=== PATIENT | female | born 1980 | race Caucasian/White ===

== ENCOUNTER 2018-07-14 12:01 | Emergency (ER) | payer BC ==
--- NOTE | 2018-07-14 13:09 | ER ---
Nurse's Notes [facility] Name: Helen Mccullough Age: 37 yrs Sex: Female : 1980 Arrival Date: 07/14/2018 Time: 12:05 Bed 28 Private MD: Clay Canales V Diagnosis: Pain in left leg Presentation: 07/14 12:07 Presenting complaint: Patient states: L leg pain x 2 days. Denies injury. No redness or ss swelling observed to affected extremity. Pt states that pain starts in L groin area and radiates down to L foot. Transition of care: patient was not received from another setting of care. Onset of symptoms was July 12, 2018. Risk Assessment: Do you want to hurt yourself or someone else? Patient reports no desire to harm self or others. Initial Sepsis Screen: Does the patient have a suspected source of infection? No. Patient's initial sepsis screen is negative. Care prior to arrival: None. 12:07 Method Of Arrival: Ambulatory ss 12:07 Acuity: AGUSTIN 3 ss 13:11 Initial Sepsis Screen: Does the patient meet any 2 criteria? No. Patient's initial kr2 sepsis screen is negative. 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 - Social history:: Smoking status: Patient/guardian denies using tobacco. - Ebola Screening: : Patient denies exposure to infectious person Patient denies travel to an Ebola-affected area in the 21 days before illness onset. Screenin:11 Abuse screen: Denies threats or abuse. Denies injuries from another. Nutritional kr2 screening: No deficits noted. Tuberculosis screening: No symptoms or risk factors identified. Fall Risk None identified. Assessment: 13:08 General: Appears in no apparent distress. comfortable, well groomed, well developed, kr2 well nourished, Behavior is calm, cooperative, appropriate for age. Pain: Complains of pain in left leg Pain currently is 7 out of 10 on a pain scale. Quality of pain is described as aching, dull, Is continuous, Alleviated by rest, Aggravated by increased activity. Neuro: Level of Consciousness is awake, alert, obeys commands, Oriented to person, place, time, situation, Appropriate for age. Cardiovascular: Capillary refill < 3 seconds in bilateral fingers Patient's skin is warm and dry. Respiratory: Airway is patent Respiratory effort is even, unlabored, Respiratory pattern is regular, symmetrical. GI: Abdomen is flat, non-distended. : Denies inability to void, incontinence. Derm: Skin is intact, is healthy with good turgor, Skin is pink, warm \T\ dry. Musculoskeletal: Circulation, motion, and sensation intact. Reports pain in left leg since Friday, denies injury or changes in routine. States she does a lot of sweeping and mopping and walks for exercise. Vital Signs: 12:09 BP 119 / 78; Pulse 111; Resp 16; Temp 98.6(TE); Pulse Ox 98% on R/A; Weight 71.67 kg; ss Height 5 ft. 4 in. (162.56 cm); Pain 7/10; 13:08 Pulse 95; Resp 16; Pulse Ox 99% on R/A; kr2 12:09 Body Mass Index 27.12 (71.67 kg, 162.56 cm) ED Course: 12:05 Patient arrived in ED. sb2 12:05 Clay Canales MD is Private Physician. sb2 12:09 Triage completed. ss 12:09 Arm band placed on left wrist. ss 12:53 [facility]. jr8 12:53 Grady Frnaco MD is Attending Physician. jr8 13:07 Ely Hardy, BURKE is Primary Nurse. kr2 13:09 Clay Canales MD is Referral Physician. jr8 13:11 Patient has correct armband on for positive identification. Bed in low position. Call kr2 light in reach. Side rails up X 1. Pulse ox on. NIBP on. Door closed. Head of bed elevated. 13:17 No provider procedures requiring assistance completed. Patient did not have IV access kr2 during this emergency room visit. Administered Medications: No medications were administered Outcome: 13:09 Discharge ordered by . jr8 13:17 Discharged to home ambulatory. kr2 13:17 Condition: good 13:17 Discharge instructions given to patient, Instructed on discharge instructions, follow up and referral plans. medication usage, Demonstrated understanding of instructions, follow-up care, medications, Prescriptions given X 2. 13:17 Patient left the ED. kr2 Signatures: Allison Becerra RN RN Joshua Jordan PA PA jr8 Ely Hardy RN RN kr2 Edna Allen sb2 Corrections: (The following items were deleted from the chart) 12:14 12:07 Acuity: AGUSTIN 4 [facility]
--- NOTE | 2018-07-14 13:09 | EDPHYS ---
Physician Documentation [facility] Name: Helen Mccullough Age: 37 yrs Sex: Female : 1980 Arrival Date: 07/14/2018 Time: 12:05 Bed 28 Private MD: Clay Canales V ED Physician Grady Franco HPI: 07/14 13:04 This 37 yrs old Female presents to ER via Ambulatory with complaints of Leg jr8 Pain. 13:04 The patient presents with pain. The complaints affect the left thigh. Onset: The jr8 symptoms/episode began/occurred acutely, 2 day(s) ago. Modifying factors: The symptoms are alleviated by nothing. the symptoms are aggravated by movement, bending knee. Associated signs and symptoms: The patient has no apparent associated signs or symptoms. Severity of symptoms: At their worst the symptoms were mild, in the emergency department the symptoms are unchanged. The patient has not experienced similar symptoms in the past. The patient has not recently seen a physician. Denies trauma. Stated that she mopped the other day. Since then has had pain to left thigh region. 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 - Social history:: Smoking status: Patient/guardian denies using tobacco. - Ebola Screening: : Patient denies exposure to infectious person Patient denies travel to an Ebola-affected area in the 21 days before illness onset. ROS: 13:04 Eyes: Negative for injury, pain, redness, and discharge, ENT: Negative for injury, jr8 pain, and discharge, Neck: Negative for injury, pain, and swelling, Cardiovascular: Negative for chest pain, palpitations, and edema, Respiratory: Negative for shortness of breath, cough, wheezing, and pleuritic chest pain, Abdomen/GI: Negative for abdominal pain, nausea, vomiting, diarrhea, and constipation, Back: Negative for injury and pain, Skin: Negative for injury, rash, and discoloration, Neuro: Negative for headache, weakness, numbness, tingling, and seizure. 13:04 MS/extremity: Positive for pain, of the left leg. Exam: 13:04 Eyes: Pupils equal round and reactive to light, extra-ocular motions intact. Lids and jr8 lashes normal. Conjunctiva and sclera are non-icteric and not injected. Cornea within normal limits. Periorbital areas with no swelling, redness, or edema. ENT: Nares patent. No nasal discharge, no septal abnormalities noted. Tympanic membranes are normal and external auditory canals are clear. Oropharynx with no redness, swelling, or masses, exudates, or evidence of obstruction, uvula midline. Mucous membranes moist. Neck: Trachea midline, no thyromegaly or masses palpated, and no cervical lymphadenopathy. Supple, full range of motion without nuchal rigidity, or vertebral point tenderness. No Meningismus. Cardiovascular: Regular rate and rhythm with a normal S1 and S2. No gallops, murmurs, or rubs. Normal PMI, no JVD. No pulse deficits. Respiratory: Lungs have equal breath sounds bilaterally, clear to auscultation and percussion. No rales, rhonchi or wheezes noted. No increased work of breathing, no retractions or nasal flaring. Abdomen/GI: Soft, non-tender, with normal bowel sounds. No distension or tympany. No guarding or rebound. No evidence of tenderness throughout. Back: No spinal tenderness. No costovertebral tenderness. Full range of motion. Skin: Warm, dry with normal turgor. Normal color with no rashes, no lesions, and no evidence of cellulitis. Neuro: Awake and alert, GCS 15, oriented to person, place, time, and situation. Cranial nerves II-XII grossly intact. Motor strength 5/5 in all extremities. Sensory grossly intact. Cerebellar exam normal. Normal gait. 13:04 Musculoskeletal/extremity: Extremities: grossly normal except: noted in the left thigh: ROM: intact in all extremities, full active range of motion, full passive range of motion, limited active range of motion due to pain, limited passive range of motion due to pain, Circulation is intact in all extremities. Sensation intact. Weight bearing: able to fully bear weight, DVT Exam: no pain, no swelling, no tenderness, negative Homans' sign noted on exam, no appreciated bluish discoloration, no erythema, no increased warmth, Calves: have equal circumference. Vital Signs: 12:09 BP 119 / 78; Pulse 111; Resp 16; Temp 98.6(TE); Pulse Ox 98% on R/A; Weight 71.67 kg; ss Height 5 ft. 4 in. (162.56 cm); Pain 7/10; 13:08 Pulse 95; Resp 16; Pulse Ox 99% on R/A; kr2 12:09 Body Mass Index 27.12 (71.67 kg, 162.56 cm) ss MDM: 12:53 Patient medically screened. jr8 13:04 Differential diagnosis: Lumbar radiculopathy, DVT, Myositis, Rhabdomyolysis, contusion, jr8 strain, cellulitis, lymphadenitis. Data reviewed: vital signs, nurses notes, and as a result, I will discharge patient. Data interpreted: Pulse oximetry: on room air is 98 %. Interpretation: normal. Counseling: I had a detailed discussion with the patient and/or guardian regarding: the historical points, exam findings, and any diagnostic results supporting the discharge/admit diagnosis, the need for outpatient follow up, a family practitioner, to return to the emergency department if symptoms worsen or persist or if there are any questions or concerns that arise at home. ED course: Patient with no DVT risk factors. No pain with palpation to any part of the leg. No inguinal reactive lymphadenopathy. No signs of infection. Only mild pain with ROM. More then likely strain. Will put on medication to help relieve the pain. Told to come back for further evaluation if worse or does not go away. Patient good with plan . Administered Medications: No medications were administered Disposition: 14:19 Co-signature as Attending Physician, Grady Franco MD I agree with the assessment and kdr plan of care. Disposition: 07/14/18 13:09 Discharged to Home. Impression: Pain in left leg. - Condition is Stable. - Discharge Instructions: Musculoskeletal Pain, Pain Without a Known Cause. - Prescriptions for Ibuprofen 800 mg Oral Tablet - take 1 tablet by ORAL route every 12 hours As needed take with food; 20 tablet. Cyclobenzaprine 10 mg Oral Tablet - take 1 tablet by ORAL route every 8 hours As needed; 30 tablet. - Medication Reconciliation Form, Thank You Letter, Antibiotic Education, Prescription Opioid Use form. - Follow up: Clay Canales MD; When: 5 - 6 days; Reason: Recheck today's complaints, Continuance of care, Re-evaluation by your physician. - Problem is new. - Symptoms have improved. Signatures: Grady Franco MD MD [facility] Allison Becerra RN RN Joshua Gale PA PA jr8 Ely Hardy, BURKE RN kr2 Corrections: (The following items were deleted from the chart) 13:17 13:09 07/14/2018 13:09 Discharged to Home. Impression: Pain in left leg. Condition is kr2 Stable. Forms are Medication Reconciliation Form, Thank You Letter, Antibiotic Education, Prescription Opioid Use. Follow up: Clay Canales; When: 5 - 6 days; Reason: Recheck today's complaints, Continuance of care, Re-evaluation by your physician. Problem is new. Symptoms have improved. jr8
== END 2018-07-14 13:17 | disposition home or self-care (01) ==
LOC: ER 12:01
DX: M79.605 Pain in left leg (principal)
CPT/HCPCS: 99283

== ENCOUNTER 2021-03-30 10:49 | Emergency (ER) | payer BC ==
--- OUTSIDE RECORDS SUMMARY | 2021-03-30 10:53 | XMS REPORT | Continuity of Care Document ---
:1980 Author Organization [facility] t Address [address] [place] [place] [address] Care Team Providers Name Role Phone Parker SILVA, Clay Primary Care Physician Yohannes PATRICIO, Brody Alexander Attending Clinician [phone] Raleigh Lee MD Attending Clinician Asked, Pcp Attending Clinician Unavailable Francois Arizmendi MD Attending Clinician Edy TURK Attending Clinician Unavailable Dayanara SILVA Attending Clinician Laura PATRICIO Attending Clinician NATHAN Admitting Clinician Unavailable BERT Admitting Clinician Unavailable Payers Payer Name Policy Type Policy Effective Date Expiration Date Sour ce Number BCBSANTHEM ALEX [id number] [id number] Method[facility] t 2020-Presen tPPO Problems This patient has no known problems. Allergies, Adverse Reactions, Alerts This patient has no known allergies or adverse reactions. Family History Family Member Diagnosis Comments Start Date Stop Date Source Natural father Heart disease Min Ramirez Natural father Hypertension Min Ramirez Social History Social Habit Start Date Stop Date Quantity Comments Source Exposure to Not sure [place] [facility] SARS-CoV-2 (event) Alcohol intake 2021-03-07 2021-03-07 Ex-drinker Min Vences thodist 00:00:00 00:00:00 (finding) Sex Ass[birth year] At [birth year] F Min Hatch ethodist 00:00:00 00:00:00 Smoking Status Start Date Stop Date Source Never smoker [facility] t Medications Ordered Filled Start Stop Current Ordering Indication Dosage Frequency Signature Comments Components Source Medication Medication Date Date Medication? Clinician (SIG) Name Name metoclopram 2020- No 10mg Q.5D Take 10 mg [place] royce 5-25 05-25 by mouth 2 [facility] (REGLAN) 10 12:35: 00:00 (two) st MG tablet 41 :00 times a day. promethazin Yes 12.5mg Q6H Take 1 [place] 5-25 tablet [facility] (PHENERGAN) 00:00: (12.[address] 12.5 MG 00 total) by tablet mouth every 6 (six) hours as needed for nausea or vomiting. pyridostigm Yes 60mg QD Take 1 [place] 5-17 tablet (60 [facility] (MESTINON) 00:00: mg total) st 60 mg 00 by mouth tablet daily. multivitami Yes 1{tbl} QD Take 1 [place] with 5-11 tablet by [facility] minerals 08:53: mouth st tablet 53 daily. ascorbic Yes 500mg QD Take 500 [place] acid, 5-11 mg by [facility] vitamin C, 08:53: mouth st (VITAMIN C) 53 daily. 500 MG tablet Ca comb Yes Take by [place] no.1/vit 5-11 mouth. [facility] D3/B6/FA/B1 08:53: st 2 (VITAMIN 53 D3, CALCIUM CIT-PHOS, ORAL) omeprazole Yes 40mg Q.5D Take 1 [place] (PriLOSEC) 4-23 capsule Method i 40 MG 00:00: ([address] capsule 00 total) by mouth 2 (two) times a day. ondansetron 2020- No Nausea 4mg Q8H Take 1 [place] ODT (Zofran 3-26 04-25 tablet (4 Me thodi ODT) 4 MG 00:00: 23:59 mg total) st disintegrat 00 :00 by mouth ing tablet every 8 (eight) hours as needed for nausea or vomiting for up to 30 days. pantoprazol 2020- No Gastroesoph 40mg QD Take 1 [place] e 3-26 04-23 ageal tablet (40 [facility] (PROTONIX) 00:00: 00:00 reflux mg total) st 40 MG EC 00 :00 disease by mouth tablet without daily. esophagitis Vital Signs Vital Name Observation Time Observation Value Comments Source Systolic blood 2021-03-06 08:43:00 108 mm[Hg] Derikto n [facility] pressure Diastolic blood 2021-03-06 08:43:00 70 mm[Hg] Katherine on [facility] pressure Heart rate 2021-03-06 08:43:00 101 /min Min Ramirez Body temperature 2021-03-06 08:43:00 36.33 [place] [facility] Respiratory rate 2021-03-06 08:43:00 16 /min [place] [facility] Oxygen saturation in 2021-03-06 08:43:00 98 /min Min Ramirez Arterial blood by Pulse oximetry Body height 2021-02-16 09:43:00 162.6 cm Min Ramirez Body weight 2021-02-16 09:43:00 69.4 kg Min Ramirez BMI 2021-02-16 09:43:00 26.26 kg/m2 Min Ramirez Procedures Procedure Date / Time Performing Source Performed Clinician ESOPHAGEAL MANOMETRY WITH MARSHALL 2021-03-06 Jameson Lee 06:56:00 NM GASTRIC EMPTYING 2021-02-23 Brody Sheffield odshiv 13:58:02 Letrice SURGICAL PATHOLOGY REQUEST 2021-02-07 Mg Arizmendi 15:12:00 ESOPHAGOGASTRODUODENOSCOPY (EGD) 2021-02-07 Mg Arizmendi 13:06:00 Plan of Care Planned Activity Planned Date Details Comments Source Future Scheduled 2021-05-27 INFLUENZA VACCINE Blayne samaniego [facility] Test 00:00:00 [code = INFLUENZA VACCINE] Future Scheduled 1999 Screening for Min Me [facility]ist Test 00:00:00 malignant neoplasm of cervix (procedure) [code = 830437805] Future Scheduled 1996 Hepatitis C Min Wyman hodist Test 00:00:00 screening (procedure) [code = 092327229] Future Scheduled 1990 COVID-19 VACCINE (1) Umesh llanos [facility] Test 00:00:00 [code = COVID-19 VACCINE (1)] Encounters Start End Encounter Admission Attending Care Care Encounter Source Date/Time Date/Time Type Type Clinicians Facility Department ID 2021-03-06 2021-03-06 Outpatient NATHAN, [facility] [id number] [place] 00:00:00 00:00:00 [place] [address] 2021-02-23 2021-02-23 Outpatient BERT [facility] [id number] [place] 00:00:00 00:00:00 MG [address] 2021-02-16 2021-02-16 Outpatient [facility] [id number] [place] 00:00:00 00:00:[address] 2021-02-07 2021-02-07 Outpatient BERT, [facility] [id number] [place] 00:00:00 00:00:00 MG [address] 2021-01-18 2021-01-18 Outpatient BERT [facility] [id number] [place] 00:00:00 00:00:00 MG [address] Results Test Description Test Time Test Comments Results Result [facility] e Comments NM Gastric 2021-01-27 [facility] Emptying [address] 14:25:40 02/23/2021 2:28 PM CDT PROCEDURE: NM GASTRIC EMPTYINGINDICATION: Nausea. Gastroesophageal reflux disease. TECHNIQUE: 0.5 mCi of Tc-99m sulfur colloid was mixed with an egg and cooked. The egg was fed to the patient and dynamic planar images of the abdomen were acquired for 90 minutes. Delayed images were obtained at 4 hours. FINDINGS: The initial gastric emptying rate is delayed. The half-time of emptying is 351 minutes. Normal range is between 45 and 100 minutes. 4 hour residual is 15%. IMPRESSION: 1. Delayed gastric emptying rate. [facility]-[id number] Surgical pathology request 2021-02-09 17:30:58 Test Item Value Reference Range Interpretation Comme nts Case number (test code = [id number]) [id number] Surgical pathology report (test code = See link below for PDF Lab R eport [id number]) Result status (test code = [id number]) This is Final Report for [id number] [facility]
[2021-03-30 13:31] LABS: Absolute Lymphocytes (CBC) 1.7 K/uL (0.7-4.9); Basophils % 0.2 % (0-1.3); Lymphocytes % 25.3 % (15.3-44.8); MPV 9.2 fL (7.6-11.3); RBC Red Blood Cell Count 5.08 M/uL (3.86-4.86)
[2021-03-30 13:37] LABS: Protime INR 1.15
--- NOTE | 2021-03-30 13:46 | RAD REPORT ---
EXAM DESCRIPTION: CT - Head Brain Wo Cont - 03/30/2021 1:21 pm CLINICAL HISTORY: Dizziness COMPARISON: None. TECHNIQUE: Computed axial tomography of the head was obtained. IV contrast was not requested. All CT scans are performed using dose optimization technique as appropriate and may include automated exposure control or mA/KV adjustment according to patient size. FINDINGS: An intracranial bleed is not seen . The ventricles are normal in caliber. No extra-axial fluid collection is noted. Fluid within the sinuses/ mastoids is not seen. IMPRESSION: No acute intracranial abnormality is seen. If patient's symptoms persist MRI of the bra in would be recommended.
[2021-03-30 13:59] LABS: ALT/SGPT 68 U/L (12-78); AST/SGOT 36 U/L (15-37); Albumin 4.9 g/dL (3.4-5.0); Alkaline Phosphatase 54 U/L (45-117); BUN Blood Urea Nitrogen 8 mg/dL (7-18); Bicarbonate 29 mmol/L (21-32); Bilirubin Direct 0.2 mg/dL (0-0.2); Bilirubin Total 0.8 mg/dL (0.2-1.0); Glucose Level 94 mg/dL (74-106); Magnesium 2.3 mg/dL (1.8-2.4); NT PRO-BNP 23 pg/mL (<125); Potassium 3.8 mmol/L (3.5-5.1); Protein, Total 8.9 g/dL (6.4-8.2); Sodium Level 138 mmol/L (136-145); Troponin (Emerg Dept Use Only) < 0.02 ng/mL (0.0-0.045)
[2021-03-30] MEDS ORDERED: NA CHLORIDE 0.9% 1,000 ML ONE (14:07)
--- NOTE | 2021-03-30 15:49 | ER ---
Nurse's Notes [facility] Name: Helen Mccullough Age: 40 yrs Sex: Female : 1980 Arrival Date: 03/30/2021 Time: 10:52 Bed 6 Private MD: Diagnosis: Dizziness and giddiness Presentation: 03/30 11:02 Chief complaint: Patient states: "I have been getting really dizzy for about a week jd3 now. this is causing me to not being able to walk far without feeling fatigue and dizzy. I do have gastroparesis which has caused me not to eat as well, so I don't know what it could be, maybe dehydration, I don't know.". Coronavirus screen: At this time, the client does not indicate any symptoms associated with coronavirus-19. Ebola Screen: Patient negative for fever greater than or equal to 101.5 degrees Fahrenheit, and additional compatible Ebola Virus Disease symptoms. Initial Sepsis Screen: Does the patient meet any 2 criteria? No. Patient's initial sepsis screen is negative. Does the patient have a suspected source of infection? No. Patient's initial sepsis screen is negative. Risk Assessment: Do you want to hurt yourself or someone else? Patient reports no desire to harm self or others. Onset of symptoms was March 25, 2021. 11:02 Method Of Arrival: Ambulatory jd3 11:02 Acuity: AGUSTIN 3 jd3 Triage Assessment: 12:49 General: Appears in no apparent distress. comfortable, Behavior is cooperative, bp appropriate for age, anxious. Pain: Denies pain. EENT: No deficits noted. Neuro: Level of Consciousness is awake, alert, obeys commands, Oriented to Appropriate for age Gait is steady, Reports dizziness. Cardiovascular: No deficits noted. Respiratory: No deficits noted. GI: No signs and/or symptoms were reported involving the gastrointestinal system. : No signs and/or symptoms were reported regarding the genitourinary system. Derm: No deficits noted. Musculoskeletal: No deficits noted. 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 - Social history:: Smoking status: Patient denies any tobacco usage or history of. Screenin:50 Abuse screen: Denies threats or abuse. Denies injuries from another. Nutritional bp screening: No deficits noted. Tuberculosis screening: No symptoms or risk factors identified. Fall Risk None identified. Assessment: 12:50 General: SEE TRIAGE NOTE. bp 13:50 Reassessment: Patient appears in no apparent distress at this time. No changes from bp previously documented assessment. Patient and/or family updated on plan of care and expected duration. Pain level reassessed. PT RETURNED FROM CT. ALL CURRENT ORDERS COMPLETED. 15:25 Reassessment: Patient appears in no apparent distress at this time. No changes from bp previously documented assessment. Patient and/or family updated on plan of care and expected duration. Pain level reassessed. ALL CURRENT ORDERS COMPLETE. 16:06 Reassessment: PT D/C HOME AMBULATORY, DX WITH NEAR-SYNCOPE. bp Vital Signs: 11:05 BP 107 / 78; Pulse 81; Resp 15 S; Temp 97.3(TE); Pulse Ox 100% on R/A; Weight 63.96 kg jd3 (R); Height 5 ft. 4 in. (162.56 cm) (R); Pain 0/10; 13:42 BP 95 / 63 LA Supine (auto/reg); Pulse 75; Resp 15; Pulse Ox 100% on R/A; dh4 13:42 BP 106 / 79 LA Sitting (auto/reg); Pulse 85; Resp 16; Pulse Ox 99% on R/A; dh4 13:42 BP 102 / 79 LA Standing (auto/reg); Pulse 84; Resp 15; Pulse Ox 100% on R/A; dh4 15:25 BP 99 / 77; Pulse 81; Resp 17; Pulse Ox 100% ; bp 11:05 Body Mass Index 24.20 (63.96 kg, 162.56 cm) jd3 ED Course: 10:52 Patient arrived in ED. ds1 11:03 Triage completed. jd3 11:05 Arm band placed on. jd3 12:49 All Valentin, RN is Primary Nurse. bp 12:50 Patient has correct armband on for positive identification. Bed in low position. Call bp light in reach. Side rails up X2. 12:55 Tai Conn PA is PHCP. bhakti 12:55 Grady Franco MD is Attending Physician. [facility] 13:15 Initial lab(s) drawn, by me, sent to lab. Inserted saline lock: 20 gauge in right jp3 antecubital area, using aseptic technique. Blood collected. Patient maintains SpO2 saturation greater than 95% on room air. 13:22 CT Head Brain wo Cont In Process Unspecified. EDMS 13:25 property assessment monitor on. Pulse ox on. NIBP on. jp3 16:06 No provider procedures requiring assistance completed. IV discontinued, intact, bp bleeding controlled, No redness/swelling at site. Pressure dressing applied. Administered Medications: 13:30 Drug: NS 0.9% 1000 ml Route: IV; Rate: 1 bolus; Site: right antecubital; bp 16:07 Follow up: IV Status: Completed infusion; IV Intake: 1000ml bp Intake: 16:07 IV: 1000ml; Total: 1000ml. bp Outcome: 15:49 Discharge ordered by MD. [facility] 16:06 Discharged to home ambulatory. bp 16:06 Condition: stable 16:06 Discharge instructions given to patient, Instructed on discharge instructions, follow up and referral plans. Demonstrated understanding of instructions, follow-up care. 16:08 Patient left the ED. bp Signatures: Dispatcher [employer] EDPA Tai Conn PA PA jmm Sanford, Demi ds1 Jose Leong RN RN jAll Peterson RN RN bp Morgan Jhaveri jp3 Caleb Curiel 4
--- NOTE | 2021-03-30 15:49 | EDPHYS ---
Physician Documentation [facility] Name: Helen Mccullough Age: 40 yrs Sex: Female : 1980 Arrival Date: 03/30/2021 Time: 10:52 Bed 6 Private MD: ED Physician Grady Franco HPI: 03/30 13:11 This 40 yrs old Female presents to ER via Ambulatory with complaints of jmm Dizziness. 13:11 The patient presents with generalized weakness, lightheadedness. Onset: The jmm symptoms/episode began/occurred gradually, 1 week(s) ago. Modifying factors: The symptoms are alleviated by standing, the symptoms are aggravated by lying down. Associated signs and symptoms: Pertinent negatives: vomiting. This is a 40 year old female with a history of gastroparesis that presents to the ED with complaints of dizziness worsening over the past week. Denies recent illness. Patient states symptoms are alleviated when standing. Patient states due to her gastroparesis she will drink about 1 bottle of water a day. . 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 - Social history:: Smoking status: Patient denies any tobacco usage or history of. ROS: 13:11 Constitutional: Negative for fever, chills, and weight loss, Cardiovascular: Negative jmm for chest pain, palpitations, and edema, Respiratory: Negative for shortness of breath, cough, wheezing, and pleuritic chest pain. 13:11 Neuro: Positive for dizziness. 13:11 All other systems are negative. Exam: 13:11 Constitutional: This is a well developed, well nourished patient who is awake, alert, jmm and in no acute distress. Head/Face: atraumatic. Eyes: EOMI, no conjunctival erythema appreciated ENT: Moist Mucus Membranes Neck: Trachea midline, Supple Chest/axilla: Normal chest wall appearance and motion. Cardiovascular: Regular rate and rhythm. No edema appreciated Respiratory: Normal respirations, no respiratory distress appreciated Abdomen/GI: Non distended, soft Back: Normal ROM Skin: General appearance color normal MS/ Extremity: Moves all extremities, no obvious deformities appreciated, no edema noted to the lower extremities Neuro: Awake and alert, normal gait Psych: Behavior is normal, Mood is normal, Patient is cooperative and pleasant Vital Signs: 11:05 BP 107 / 78; Pulse 81; Resp 15 S; Temp 97.3(TE); Pulse Ox 100% on R/A; Weight 63.96 kg jd3 (R); Height 5 ft. 4 in. (162.56 cm) (R); Pain 0/10; 13:42 BP 95 / 63 LA Supine (auto/reg); Pulse 75; Resp 15; Pulse Ox 100% on R/A; dh4 13:42 BP 106 / 79 LA Sitting (auto/reg); Pulse 85; Resp 16; Pulse Ox 99% on R/A; dh4 13:42 BP 102 / 79 LA Standing (auto/reg); Pulse 84; Resp 15; Pulse Ox 100% on R/A; dh4 15:25 BP 99 / 77; Pulse 81; Resp 17; Pulse Ox 100% ; bp 11:05 Body Mass Index 24.20 (63.96 kg, 162.56 cm) jd3 MDM: 13:01 Patient medically screened. bhakti 15:46 Data reviewed: vital signs, nurses notes. Counseling: I had a detailed discussion with bhakti the patient and/or guardian regarding: the historical points, exam findings, and any diagnostic results supporting the discharge/admit diagnosis, lab results, radiology results, the need for outpatient follow up, to return to the emergency department if symptoms worsen or persist or if there are any questions or concerns that arise at home. ED course: Patient is alert and non toxic in appearance in the ED. Labs, imaging studies negative. Most likely patient is experiencing episodes of hypotension. I do not suspect cva/vbi. Low risk factors. Patient is advised to follow up with pcp/cardio for further evaluation. patient is otherwise given strict return precautions. patient understood and agrees with the plan of care. . 03/30 13:02 Order name: Basic Metabolic Panel; Complete Time: 14:00 [facility] 03/30 13:02 Order name: CBC with Diff; Complete Time: 13:45 [facility] 03/30 13:02 Order name: LFT's; Complete Time: 14:00 [facility] 03/30 13:02 Order name: Magnesium; Complete Time: 14:00 [facility] 03/30 13:02 Order name: NT PRO-BNP; Complete Time: 14:00 [facility] 03/30 13:02 Order name: PT-INR; Complete Time: 13:45 [facility] 03/30 13:02 Order name: Troponin (emerg Dept Use Only); Complete Time: 14:00 [facility] 03/30 13:02 Order name: EKG; Complete Time: 13:03 [facility] 03/30 13:02 Order name: Cardiac monitoring; Complete Time: 13:49 [facility] 03/30 13:02 Order name: EKG - Nurse/Tech; Complete Time: 13:49 [facility] 03/30 13:02 Order name: IV Saline Lock; Complete Time: 13:19 [facility] 03/30 13:02 Order name: Labs collected and sent; Complete Time: 13:19 [facility] 03/30 13:04 Order name: CT Head Brain wo Cont; Complete Time: 14:00 [facility] 03/30 13:02 Order name: O2 Per Protocol; Complete Time: 13:19 [facility] 03/30 13:02 Order name: O2 Sat Monitoring; Complete Time: 13:19 [facility] 03/30 13:02 Order name: Orthostatic Blood Pressure; Complete Time: 13:49 jmm Administered Medications: 13:30 Drug: NS 0.9% 1000 ml Route: IV; Rate: 1 bolus; Site: right antecubital; bp 16:07 Follow up: IV Status: Completed infusion; IV Intake: 1000ml bp Disposition: 18:45 Co-signature as Attending Physician, Grady Franco MD I agree with the assessment and kdr plan of care. Disposition: 03/30/21 15:49 Discharged to Home. Impression: Dizziness and giddiness. - Condition is Stable. - Discharge Instructions: Dizziness, Near-Syncope. - Medication Reconciliation Form, Thank You Letter, Antibiotic Education, Prescription Opioid Use form. - Follow up: Private Physician; When: 2 - 3 days; Reason: Recheck today's complaints, Continuance of care, Re-evaluation by your physician. Signatures: Dispatcher [employer] Grady Clemons MD MD kdr Mickail, Joel, PA PA jmm Davies, Jonathon, RN RN All Chauhan, RN RN bp Corrections: (The following items were deleted from the chart) 16:08 15:49 03/30/2021 15:49 Discharged to Home. Impression: Dizziness and giddiness. bp Condition is Stable. Forms are Medication Reconciliation Form, Thank You Letter, Antibiotic Education, Prescription Opioid Use. Follow up: Private Physician; When: 2 - 3 days; Reason: Recheck today's complaints, Continuance of care, Re-evaluation by your physician. bhakti
[2021-03-30 16:42] VITALS: TEMP 97.3; O2SAT 100
[2021-03-30 16:50] VITALS: BP 99/77
== END 2021-03-30 16:08 | disposition home or self-care (01) ==
LOC: ER 10:49
DX: R42 Dizziness and giddiness (principal); K31.84 Gastroparesis
CPT/HCPCS: 96361; 85025; 80048; 36415; 83735; 85610; 80076; 84484; 83880; 70450; 96360; 99285; J7030

== ENCOUNTER 2021-05-09 06:23 | Emergency (ER) | payer BC ==
--- OUTSIDE RECORDS SUMMARY | 2021-05-09 06:27 | XMS REPORT | Continuity of Care Document ---
:1980 Author Organization [facility] t Address [address] [place] [place] [address] Care Team Providers Name Role Phone Parker SILVA, Clay Primary Care Physician Yohannes PATRICIO, Brody Alexander Attending Clinician [phone] Edy TURK Attending Clinician Unavailable Raleigh Lee MD Attending Clinician Asked, Pcp Attending Clinician Unavailable Francois Arizmendi MD Attending Clinician Dayanara SILVA Attending Clinician Laura PATRICIO Attending Clinician NATHAN Admitting Clinician Unavailable BERT Admitting Clinician Unavailable Payers Payer Name Policy Type Policy Effective Date Expiration Date Sour ce Number BCBSANTHEM ALEX [id number] [id number] Method[facility] t 2020-Presen tPPO Problems This [...] [facility] SARS-CoV-2 (event) Alcohol intake 2021-04-12 2021-04-12 Ex-drinker Min Vences thodist 00:00:00 00:00:00 (finding) Sex Ass[birth year] At [birth year] F Cop[facility] M ethodist 00:00:00 00:00:00 Smoking Status Start Date Stop Date Source Never smoker Min Pantojais danny Medications Ordered Filled Start Stop Current Ordering Indication Dosage Frequency Signature Comments Components Source Medication Medication Date Date Medication? Clinician (SIG) Name Name metoclopram Yes 5mg Q.25D Take 1 Umesh ston royce 6-25 tablet (5 Methodi (Reglan) 5 00:00: mg total) st MG tablet 00 by mouth 4 (four) times a day. dronabinoL 2020- Yes 2.5mg Q.5D Take 1 Umesh ston (MARINOL) 6-17 07-17 capsule Method i 2.5 MG 00:00: 23:59 (2.[address] capsule 00 :00 total) by mouth 2 (two) times a day before meals for 30 days. metoclopram 2020- No 10mg Q.5D Take 10 mg [place] royce 5-25 05-25 by mouth 2 [facility] (REGLAN) 10 12:35: 00:00 (two) st MG tablet 41 :00 times a day. promethazin 2020- No 12.5mg Q6H Take 1 [place] e 5-25 06-25 tablet [facility] (PHENERGAN) 00:00: 00:00 (12.5 mg s t 12.5 MG 00 :00 total) by tablet mouth every 6 (six) [...] MG tablet Ca comb Yes Take by Min no.1/vit 5-11 mouth. [facility] D3/B6/FA/B1 08:53: st 2 (VITAMIN 53 D3, CALCIUM CIT-PHOS, ORAL) omeprazole Yes 40mg Q.5D Take 1 [place] (PriLOSEC) 4-23 capsule Method i 40 MG 00:00: ([address] capsule 00 total) by mouth 2 (two) times a day. ondansetron 2020- No Nausea 4mg Q8H Take 1 [place] ODT (Zofran 01-19 tablet (4 Me thodi ODT) 4 MG 00:00: 23:59 mg total) st disintegrat 00 :00 by mouth ing tablet every 8 (eight) hours as needed for nausea or vomiting for up to 30 days. pantoprazol 2020- No Gastroesoph 40mg QD Take 1 [place] e 01-19 ageal tablet (40 [facility] (PROTONIX) 00:00: 00:00 reflux mg total) st 40 MG EC 00 :00 disease by mouth tablet without daily. esophagitis Vital Signs Vital Name Observation Time Observation Value Comments Source Body height 2021-04-12 09:02:00 162.6 cm Min Ramirez Body weight 2021-04-12 09:02:00 63.957 kg Min Ramirez BMI 2021-04-12 09:02:00 24.20 kg/m2 Min Ramirez Systolic blood 2021-03-06 08:43:00 108 mm[Hg] Blayne n Mormon pressure Diastolic blood 2021-03-06 08:43:00 70 mm[Hg] Katherine Ramirez pressure Heart rate 2021-03-06 08:43:00 101 /min Min Ramirez Body temperature 2021-03-06 08:43:00 36.33 Rosa Derik Ramirez Respiratory rate 2021-03-06 08:43:00 16 /min Derik Ramirez Oxygen saturation in 2021-03-06 08:43:00 98 /min Min Ramirez Arterial blood by Pulse oximetry Procedures Procedure Date / Time Performing Source Performed Clinician US ABDOMEN COMPLETE 2021-05-07 Brody Sheffield Meth odist 10:55:25 [place] FECAL FAT, QUALITATIVE 2021-04-13 Brody Sheffield M ethodist 15:23:00 Letrice PANCREATIC ELASTASE, FECAL 2021-04-13 Brody Sheffield on Mormon 15:23:00 Letrice FECAL CALPROTECTIN 2021-04-13 Brody Sheffield Metho dist 15:23:00 Letrice ESOPHAGEAL MANOMETRY WITH MARSHALL 2021-03-06 Lissett Lee 06:56:00 NM GASTRIC EMPTYING 2021-02-23 Brody Sheffield Meth odist 13:58:02 Letrice SURGICAL PATHOLOGY REQUEST 2021-02-07 Mg Arizmendi Mormon 15:12:00 ESOPHAGOGASTRODUODENOSCOPY (EGD) 2021-02-07 Mg Arizmendi 13:06:00 Plan of Care Planned Activity Planned Date Details Comments Source Future Scheduled 2021-05-27 INFLUENZA VACCINE [place] [facility] Test 00:00:00 [code = INFLUENZA VACCINE] Future Scheduled 1999 Screening for [facility] thodist Test 00:00:00 malignant neoplasm of cervix (procedure) [code = 429992300] Future Scheduled 1996 Hepatitis C [facility] hodist Test 00:00:00 screening (procedure) [code = 363896012] Future Scheduled 1990 COVID-19 VACCINE (1) Umesh cabraldanette Mormon Test 00:00:00 [code = COVID-19 VACCINE (1)] Encounters Start End Encounter Admission Attending Care Care Encounter Source Date/Time Date/Time Type Type Clinicians Facility Department ID 2021-05-07 2021-05-07 Outpatient [facility] [id number] [place] 00:00:00 00:00:[address] 2021-04-12 2021-04-12 Outpatient [facility] [id number] [place] 00:00:00 00:00:[address] 2021-03-06 2021-03-06 [id number] [place] 00:00:00 00:00:00 [place] [address] 2021-02-23 2021-02-23 Outpatient BERT [facility] [id number] [place] 00:00:00 00:00:00 MG [address] 2021-02-16 2021-02-16 Outpatient [facility] [id number] [place] 00:00:00 00:00:[address] 2021-02-07 2021-02-07 Outpatient BERT [facility] [id number] [place] 00:00:00 00:00:00 MG [address] 2021-01-18 2021-01-18 Outpatient BERT Ofe [facility] [id number] [place] 00:00:00 00:00:[address] MG [address] Results Test Description Test Time Test Comments Results Result Comments Source Fecal fat, qualitative 2021-04-20 20:36:00 Test Item Value Reference Range Interpretation Comme nts Fat qual, stool (test SEE NOTE FEC AL FAT, QUALITATIVE code = 72284-8) Micro Numb er: [id number] Test Status: Final Specime n Source: STOOL Specimen Quality: Adequate Fecal Fat Result: Normal RAC (test code = RAC) Performing Organization Information: Site ID: [email or web address] Name: [email or web address] Address: [address] [place] [address] Director: Dr. Thad Copeland MethodistFecal [id number] 20:36:00 Test Item Value Reference Interpretation Comments Range Fecal 11 mcg/g calprotectin R eference (test code = Range: 22845-5) <50 Normal 50-120 Borderl ine >120 Elevated Calpro tectin in Crohn's dise ase and ulcerative coli tis canbe five to s everal thousand times above the referencepo pulation (50 mcg/g or le ss). Levels are usua lly 50 mcg/gor less in healthy patients and wi th irritable bowelsyndrome. Repeat testing in 4-6 weeks is suggested forbo rderline values. RAC (test code = Performing RAC) Organization Information: Site ID: EZ Name: [email or web address], Address: [address] [place] [id number] Director: Namita Doyle MD,PhD,LEAH [facility] MethodistPancreatic elastase, [id number] 02:11:00 Test Item Value Reference Interpretation Comments Range Pancreatic >500 mcg/g Adult and Pedi atric Elastase-1 (test Reference R anges for code = 68347-7) Pancreatic E lastase-1: Nor mal: >200 mcg/gMode rate Pancreatic Insufficiency: 100-200 mcg/g Severe Pancreatic Insufficiency: <100 mcg/g Elas tase-1 (E-1) assay res ults are expressedin mcg /g, which represent mcg E1/g feces. It is not necessary to in terrupt enzymesubstitut ion therapy. RAC (test code = Performing RAC) Organization Information: Site ID: EZ Name: [email or web address], Address: [address] [place] [phone] Director: Namita Doyle MD,PhD,LEAH Min RamirezMO Gastric [id number] 14:25:40Hm Interface, Radiology Results Incoming - 02/23/2021 2:28 PM CDTFormatting of this note might be di fferent from the original.PROCEDURE: NM GASTRIC EMPTYINGINDICATION: Nausea. Gastroesophageal reflux disease. [...] 15%. IMPRESSION: 1. Delayed gastric emptying rate. [facility]-[id number] MethodistSurgical pathology [id number] 17:30:58 Test Item Value Reference Range Interpretation Comments Case number (test code = [id number]) Surgical pathology See link below for report (test code = PDF Lab Report [id number]) Result status (test code This is Final Report = [id number]) for [id number] Min Ramirez
[2021-05-09 07:47] LABS: Absolute Lymphocytes (CBC) 1.5 K/uL (0.7-4.9); Basophils % 0.1 % (0-1.3); Hematocrit 38.9 % (36.0-45.0); Lymphocytes % 18.7 % (15.3-44.8); MPV 8.4 fL (7.6-11.3); RBC Red Blood Cell Count 4.35 M/uL (3.86-4.86)
[2021-05-09 07:55] LABS: Protime INR 1.14
[2021-05-09 08:02] LABS: ALT/SGPT 43 U/L (12-78); AST/SGOT 21 U/L (15-37); Albumin 3.7 g/dL (3.4-5.0); Alkaline Phosphatase 55 U/L (45-117); BUN Blood Urea Nitrogen 7 mg/dL (7-18); Bicarbonate 29 mmol/L (21-32); Bilirubin Direct 0.1 mg/dL (0-0.2); Bilirubin Total 0.5 mg/dL (0.2-1.0); Glucose Level 90 mg/dL (74-106); Magnesium 2.1 mg/dL (1.8-2.4); NT PRO-BNP 35 pg/mL (<125); Potassium 3.8 mmol/L (3.5-5.1); Protein, Total 7.2 g/dL (6.4-8.2); Sodium Level 141 mmol/L (136-145); Troponin (Emerg Dept Use Only) < 0.02 ng/mL (0.0-0.045)
--- NOTE | 2021-05-09 08:58 | RAD REPORT ---
EXAM DESCRIPTION: MRI - Brain Wo Cont - 05/09/2021 8:40 am CLINICAL HISTORY: DIZZINESS, blurred vision COMPARISON: Head Brain Wo Cont dated 03/30/2021 TECHNIQUE: Sagittal T1-weighted images were obtained along with axial PD, heavily T2-weighted and T2 -FLAIR images. Axial DWI and ADC mapping sequences were also obtained along with coronal heavily T2-w eighted images. FINDINGS: No intracranial hemorrhage, mass or acute infarction. There is no edema or shift of midlin e structures. No extra-axial fluid collections. Quintero-matter/white matter junction is preserved. Signa l voids are seen as a normal finding in the major intracranial vessels. No atrophy or chronic ischemic change. Ventricles are normal. No sella or supra sella abnormality. Th ere is no tonsillar ectopia. No globe or orbital content abnormality evident. Mastoid air cells and paranasal sinuses are clear. IMPRESSION: Negative non-contrast MRI of the Brain.
--- NOTE | 2021-05-09 09:23 | RAD REPORT ---
EXAM DESCRIPTION: RAD - Chest Single View - 05/09/2021 6:59 am CLINICAL HISTORY: DYSPNEA, shortness of breath COMPARISON: None TECHNIQUE: AP portable chest image was obtained 05/09/2021 6:59 am . FINDINGS: No mass or consolidation. Minimal prominence of the bibasilar interstitial markings noted. This is probably baseline. A very minimal interstitial edema or infiltrate is not excluded. Signific ant failure or volume overload not present. Trachea is midline. Heart and vasculature are normal. No measurable pleural effusion and no pneumotho rax. No acute bony abnormality seen. No acute aortic findings suspected. IMPRESSION: No focal mass or consolidation. Slight prominence of bibasilar lung markings favored to be baseline rather than interstitial edema or infiltrate.
--- NOTE | 2021-05-09 09:29 | ER ---
Nurse's Notes [facility] Name: Helen Mccullough Age: 40 yrs Sex: Female : 1980 Arrival Date: 05/09/2021 Time: 06:27 Bed 17 Private MD: Clay Canales V Diagnosis: Dizziness and giddiness Presentation: 05/09 06:42 Chief complaint: Patient states: she has been feeling dizzy since the end of February then bb tonight she had an episode of SOB lasting a few minutes which got her worried. Coronavirus screen: At this time, the client does not indicate any symptoms associated with coronavirus-19. Ebola Screen: No symptoms or risks identified at this time. Initial Sepsis Screen: Does the patient meet any 2 criteria? No. Patient's initial sepsis screen is negative. Does the patient have a suspected source of infection? No. Patient's initial sepsis screen is negative. Risk Assessment: Do you want to hurt yourself or someone else? Patient reports no desire to harm self or others. Onset of symptoms was February 2021. 06:42 Method Of Arrival: Ambulatory bb 06:42 Acuity: AGUSTIN 3 bb Triage Assessment: 07:45 Respiratory: Onset: The symptoms/episode began/occurred the patient has mild shortness kg of breath. 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 - Social history:: Smoking status: Patient denies any tobacco usage or history of. Screenin:45 Abuse screen: Denies threats or abuse. Denies injuries from another. Nutritional kg screening: No deficits noted. Tuberculosis screening: No symptoms or risk factors identified. Fall Risk None identified. No fall in past 12 months (0 pts). No secondary diagnosis (0 pts). IV access (20 points). Ambulatory Aid- None/Bed Rest/Nurse Assist (0 pts). Gait- Normal/Bed Rest/Wheelchair (0 pts) Mental Status- Oriented to own ability (0 pts). Total Dent Fall Scale indicates No Risk (0-24 pts). Assessment: 07:42 General: Appears in no apparent distress. Behavior is calm, cooperative, appropriate kg for age, quiet. Pain: Complains of pain in diaphragm Pain radiates to left subscapular area and left mid back Pain currently is 4 out of 10 on a pain scale. at worst was 6 out of 10 on a pain scale. level that patient reports is acceptable is 5 out of 10 on a pain scale. Quality of pain is described as dull, Is intermittent. Neuro: Level of Consciousness is awake, alert, obeys commands, Oriented to person, place, time, situation, Appropriate for age Incident Response Engineer are equal bilaterally Moves all extremities. Gait is steady, Reports dizziness, since 6 weeks. Cardiovascular: Heart tones S1 S2 Capillary refill < 3 seconds Pulses are 3+ in right radial artery and left radial artery Rhythm is sinus rhythm. Respiratory: Reports shortness of breath Airway is patent Trachea midline Respiratory effort is even, unlabored, relaxed, Respiratory pattern is regular, Breath sounds are clear. GI: No deficits noted. GI: No deficits noted. Abdomen is flat, Reports upper abdominal pain. : No deficits noted. EENT: No deficits noted. Derm: No deficits noted. Musculoskeletal: No deficits noted. Vital Signs: 06:42 BP 108 / 74; Pulse 105; Resp 16 S; Temp 98(O); Pulse Ox 98% on R/A; Weight 61.69 kg bb (R); Height 5 ft. 4 in. (162.56 cm) (R); Pain 0/10; 07:47 BP 101 / 68 RA Supine (auto/reg); Pulse 92; Resp 16; Pulse Ox 100% on R/A; kg 07:49 BP 98 / 74 RA Sitting (auto/reg); Pulse 93; Resp 16; Pulse Ox 99% on R/A; kg 07:51 BP 103 / 80 RA Standing (auto/reg); Pulse 113 RA; Resp 17; Pulse Ox 96% on R/A; kg 08:00 BP 97 / 79; Pulse 87; Resp 16; Pulse Ox 98% on R/A; kg 09:36 BP 90 / 69; Pulse 95; Resp 18; Pulse Ox 100% on R/A; kg 10:30 BP 106 / 71; Pulse 89; Resp 20; Pulse Ox 100% ; kg 06:42 Body Mass Index 23.34 (61.69 kg, 162.56 cm) bb ED Course: 06:27 Patient arrived in ED. am4 06:27 Clay Canales MD is Private Physician. am4 06:27 Jo-Ann Clark FNP-C is [facility] kb 06:27 Mat Wood MD is Attending Physician. kb 06:44 Triage completed. bb 06:44 Arm band placed on Patient placed in an exam room, on a stretcher, on pulse oximetry. bb 06:58 Solange Jensen, RN is Primary Nurse. bs2 06:59 XRAY Chest (1 view) In Process Unspecified. EDMS 07:30 Inserted saline lock: 20 gauge in left antecubital area, using aseptic technique. kg 07:45 Patient has correct armband on for positive identification. Bed in low position. Call kg light in reach. Side rails up X 1. 07:46 Liver (Hepatic) Function Sent. kg 07:46 Basic Metabolic Panel Sent. kg 07:46 Basic Metabolic Panel Sent. kg 07:46 LFT's Sent. kg 08:25 MRI - Brain Wo Cont In Process Unspecified. EDMS 09:28 Clay Canales MD is Referral Physician. kb 10:36 No provider procedures requiring assistance completed. IV discontinued, intact, kg bleeding controlled, No redness/swelling at site. Pressure dressing applied. Administered Medications: 09:35 Drug: NS 0.9% 1000 ml Route: IV; Rate: 1000 ml; Site: left antecubital; kg 10:25 Follow up: Response: No adverse reaction; Marked relief of symptoms; IV Status: kg Completed infusion; IV Intake: 1000ml Intake: 10:25 IV: 1000ml; Total: 1000ml. kg Outcome: 09:28 Discharge ordered by . kb 10:36 Discharged to home ambulatory. kg 10:36 Condition: improved 10:36 Discharge instructions given to patient, Instructed on discharge instructions, follow up and referral plans. 10:37 Patient left the ED. kg Signatures: Dispatcher [employer] EDMS Jo-Ann Clark FNP-C FNP-Ckb Ballard, Brenda, RN RN bb Martinez, Ashley am4 Chandni Weber RN RN kg Solange Jensen, RN RN bs2 Corrections: (The following items were deleted from the chart) 06:45 06:44 PSHx: Total abdominal hysterectomy; bb 07:46 07:46 D-DIMER+COAG.LAB.BRZ drawn and sent. kg EDMS
--- NOTE | 2021-05-09 09:29 | EDPHYS ---
Physician Documentation [facility] Name: Helen Mccullough Age: 40 yrs Sex: Female : 1980 Arrival Date: 05/09/2021 Time: 06:27 Bed 17 Private MD: Clay Canales V ED Physician Mat Wood HPI: 05/09 06:40 This 40 yrs old Female presents to ER via Unassigned with complaints of kb Shortness Of Breath, Dizziness. 06:40 The patient presents with dizziness. Onset: The symptoms/episode began/occurred March 24, 2020. Context: occurred at home, just prior to the episode the patient experienced no apparent symptoms. Modifying factors: The symptoms are alleviated by nothing, the symptoms are aggravated by nothing. Associated signs and symptoms: Pertinent positives: shortness of breath, Pertinent negatives: abdominal pain, agitation, ataxia, blurred vision, chest pain, combativeness, confusion, diaphoresis, focal weakness, head injury, headache, nausea, near-syncope, numbness, palpitations, , seizure, syncope, tingling, vomiting. Severity of symptoms: At their worst the symptoms were moderate in the emergency department the symptoms are unchanged. Patient's baseline: Neuro: alert and fully oriented, Motor: no deficits, Ambulation: walks without assistance, Speech: normal. The patient has experienced similar episodes in the past. The patient has been recently seen at the [facility] Emergency Department, last month. Pt reports dizziness since 03/24/21. States it is constant, nothing makes it better or worse. States she has been seen here and her PCP for this with no findings to suggest cause. States she was diagnosed with gastroparesis in January and thinks the symptoms are due to dehydration because she doesn't drink or eat as much as she should. This morning she had a few minutes of shortness of breath while laying in bed which prompted her visit today. MEDICAL SPECIALIST: :44 LMP N/A - Hysterectomy bb Historical: - Allergies: : No Known Allergies; bb - Home Meds: :44 Zofran Oral as needed [Active]; bb - PMHx: :44 gastroparesis; bb - PSHx: :44 Hysterectomy; Cholecystectomy; bb - Immunization history:: Adult Immunizations up to date. - Social history:: Smoking status: Patient denies any tobacco usage or history of. ROS: 06:40 Constitutional: Negative for fever, chills, and weight loss. kb 06:40 Respiratory: Positive for shortness of breath, Negative for cough, dyspnea on exertion, hemoptysis, orthopnea, pleurisy, sputum production, wheezing. 06:40 Neuro: Positive for dizziness, Negative for altered mental status, gait disturbance, headache, hearing loss, loss of consciousness, numbness, seizure activity, speech changes, syncope, near syncope, tingling, tinnitus, tremor, visual changes, weakness. 06:40 All other systems are negative. 06:44 Abdomen/GI: Positive for abdominal pain, of the right upper quadrant, had recent US for kb this pain with normal results and MRI is scheduled, Negative for nausea, vomiting, and diarrhea. Exam: 06:45 Constitutional: This is a well developed, well nourished patient who is awake, alert, kb and in no acute distress. Head/Face: Normocephalic, atraumatic. ENT: Moist Mucous membranes Cardiovascular: Regular rate and rhythm with a normal S1 and S2. No gallops, murmurs, or rubs. No pulse deficits. Respiratory: Respirations even and unlabored. No increased work of breathing, no retractions or nasal flaring. Abdomen/GI: Soft, non-tender. No distention Skin: Warm, dry with normal turgor. Normal color. MS/ Extremity: Pulses equal, no cyanosis. Neurovascular intact. Full, normal range of motion. Neuro: Awake and alert, GCS 15, oriented to person, place, time, and situation. Moves all extremities. Normal gait. Psych: Awake, alert, with orientation to person, place and time. Behavior, mood, and affect are within normal limits. 06:45 Constitutional: The patient appears anxious. 07:36 ECG was reviewed by the Attending Physician. kb Vital Signs: 06:42 BP 108 / 74; Pulse 105; Resp 16 S; Temp 98(O); Pulse Ox 98% on R/A; Weight 61.69 kg bb (R); Height 5 ft. 4 in. (162.56 cm) (R); Pain 0/10; 07:47 BP 101 / 68 RA Supine (auto/reg); Pulse 92; Resp 16; Pulse Ox 100% on R/A; kg 07:49 BP 98 / 74 RA Sitting (auto/reg); Pulse 93; Resp 16; Pulse Ox 99% on R/A; kg 07:51 BP 103 / 80 RA Standing (auto/reg); Pulse 113 RA; Resp 17; Pulse Ox 96% on R/A; kg 08:00 BP 97 / 79; Pulse 87; Resp 16; Pulse Ox 98% on R/A; kg 09:36 BP 90 / 69; Pulse 95; Resp 18; Pulse Ox 100% on R/A; kg 10:30 BP 106 / 71; Pulse 89; Resp 20; Pulse Ox 100% ; kg 06:42 Body Mass Index 23.34 (61.69 kg, 162.56 cm) bb MDM: 06:39 Patient medically screened. kb 06:45 Data reviewed: vital signs, nurses notes. Data interpreted: Pulse oximetry: on room air kb is 98 %. Interpretation: normal. 09:28 Counseling: I had a detailed discussion with the patient and/or guardian regarding: the kb historical points, exam findings, and any diagnostic results supporting the discharge/admit diagnosis, lab results, radiology results, the need for outpatient follow up, a neurologist, to return to the emergency department if symptoms worsen or persist or if there are any questions or concerns that arise at home. 05/09 06:40 Order name: Basic Metabolic Panel kb 05/09 06:40 Order name: CBC with Diff; Complete Time: 08:09 kb 05/09 06:40 Order name: LFT's kb 05/09 06:40 Order name: Magnesium; Complete Time: 08:09 kb 05/09 06:40 Order name: NT PRO-BNP; Complete Time: 08:09 kb 05/09 06:40 Order name: PT-INR; Complete Time: 08:09 kb 05/09 06:40 Order name: Troponin (emerg Dept Use Only); Complete Time: 08:09 kb 05/09 06:40 Order name: XRAY Chest (1 view); Complete Time: 09:28 kb 05/09 06:52 Order name: Basic Metabolic Panel; Complete Time: 08:09 EDMS 05/09 06:52 Order name: Liver (Hepatic) Function; Complete Time: 08:09 EDMS 05/09 07:34 Order name: MRI - Brain Wo Cont; Complete Time: 08:59 kb 05/09 07:46 Order name: D-Dimer; Complete Time: 08:09 EDMS 05/09 06:40 Order name: EKG; Complete Time: 06:52 kb 05/09 06:40 Order name: Cardiac monitoring; Complete Time: 07:46 kb 05/09 06:40 Order name: EKG - Nurse/Tech; Complete Time: 07:46 kb 05/09 06:40 Order name: IV Saline Lock; Complete Time: 07:46 kb 05/09 06:40 Order name: Labs collected and sent; Complete Time: 07:46 kb 05/09 06:40 Order name: O2 Per Protocol; Complete Time: 07:46 kb 05/09 06:40 Order name: O2 Sat Monitoring; Complete Time: 07:46 kb 05/09 06:40 Order name: Orthostatics; Complete Time: 07:53 kb EC:36 Rate is 91 beats/min. Rhythm is regular. QRS [place] is Normal. [place] interval is normal at kb 176 msec. QRS interval is normal at 80 msec. QT interval is normal at 344 msec. Administered Medications: 09:35 Drug: NS 0.9% 1000 ml Route: IV; Rate: 1000 ml; Site: left antecubital; kg 10:25 Follow up: Response: No adverse reaction; Marked relief of symptoms; IV Status: kg Completed infusion; IV Intake: 1000ml Disposition: 15:52 Co-signature as Attending Physician, Mat Wood MD I agree with the assessment and lauri plan of care. Disposition Summary: 05/09/21 09:28 Discharge Ordered Location: Home kb Condition: Stable kb Diagnosis - Dizziness and giddiness kb Followup: kb - With: Emergency Department - When: As needed - Reason: Worsening of condition Followup: kb - With: Clay Canales MD - When: 2 - 3 days - Reason: Recheck today's complaints, Continuance of care, Re-evaluation by your physician Discharge Instructions: - Discharge Summary Sheet kb - Dizziness, [id number] kb Forms: - Medication Reconciliation Form kb - Thank You Letter kb - Antibiotic Education kb - Prescription Opioid Use kb Signatures: Dispatcher [employer] EDDC Jo-Ann Clark, REHABILITATION CONSTRUCTION SPECIALIST-C ASHLYN-Mat Walters MD MD cha Ballard, Brenda, RN RN Chandni Holland RN RN kg Corrections: (The following items were deleted from the chart) 06:44 06:40 Pt reports dizziness since 03/24/21. States it is constant, nothing makes it kb better or worse. States she has been seen here and her PCP for this with no findings to suggest cause. States she was diagnosed with gastroparesis in January and thinks the symptoms are due to dehydration because she doesn't drink or eat as much as she should. . kb 06:45 06:44 PSHx: Total abdominal hysterectomy; bb bb 07:46 06:58 D-DIMER+[email or web address].LAB.BRZ ordered. EDMS EDMS
[2021-05-09] MEDS ORDERED: NA CHLORIDE 0.9% 1,000 ML ONE (09:53)
[2021-05-09 11:01] VITALS: TEMP 98
[2021-05-09 11:08] VITALS: O2SAT 100
[2021-05-09 11:10] VITALS: BP 106/71
--- NOTE | 2021-05-09 12:38 | EKG ---
Test Date: 2021-05-09 Test Time: 07:18:31 Hosiery Bagger: DIANDRA MEASUREMENT RESULTS: Intervals: Rate: 91 ND: 176 QRSD: 80 QT: 344 QTc: 423 Norris: P: 70 ND: 176 QRS: 53 T: 55 INTERPRETIVE STATEMENTS: Normal sinus rhythm Normal ECG Compared to ECG 03/30/2021 13:31:38 No significant changes Electronically Signed On 05-09-21 12:37:18 CDT by Boo Galvin
== END 2021-05-09 10:37 | disposition home or self-care (01) ==
LOC: ER 06:23
DX: R42 Dizziness and giddiness (principal); R06.02 Shortness of breath
CPT/HCPCS: 93005; 85025; 80048; 36415; 83735; 85610; 85379; 80076; 84484; 83880; 71045; 70551; 96360; 99284; J7030

== ENCOUNTER 2021-06-01 06:18 | Emergency (ER) | payer BC ==
--- OUTSIDE RECORDS SUMMARY | 2021-06-01 06:21 | XMS REPORT | Continuity of Care Document ---
:1980 Author Organization [facility] Address [address] [place] [address] [address]. [address] [place] [address] Care Team Providers Name Role Phone Parker SILVA, Clay Primary Care Physician Bert SILVA, Mg Parrish Attending Clinician Sherri Luna MD Attending Clinician Laura RADIOSONDE SPECIALIST Attending Clinician Catherine Sheffield NP Attending Clinician Edy TURK Attending Clinician Unavailable Raleigh Lee MD Attending Clinician Asked, Pcp Attending Clinician Unavailable Dayanara SILVA Attending Clinician BERT Admitting Clinician Unavailable NATHAN Admitting Clinician Unavailable Payers Payer Name Policy Type Policy Effective Date Expiration Date [facility] Number [place] [id number] [id number] 2020-Presen tPPO Problems Condition Condition Condition Status Onset Resolution Last Treating Co mments Source Name Details Category Date Date Treatment Clinician Date Diarrhea Diarrhea Disease Active [facility] 00[facility]00: Hospita 00 l Bloating Bloating Disease Active Metho di 05-13 [facility] 00:00: Hospita 00 l Allergies, Adverse Reactions, Alerts This patient has no known allergies or adverse reactions. Family History Family Member Diagnosis Comments Start Date Stop Date Source Natural father Heart disease [facility] Natural father Hypertension [facility] Social History Social Habit Start Date Stop Date Quantity Comments Source Exposure to Not sure S[facility]ism SARS-CoV-2 Hospital (event) Tobacco use and 2021-05-25 2021-05-25 Never used Sikhism exposure 00:00:00 00:00:00 Hospital Alcohol intake 2021-05-25 2021-05-25 Ex-drinker Sikhism 00:00:00 00:00:00 (finding) Hospital Sex Assigned At [birth year] F Sikhism 00:00:00 00:00:00 Hospital Smoking Status Start Date Stop Date Source Never smoker [facility] Hospit al Medications Ordered Filled Start Stop Current Ordering Indication Dosage Frequency Signature Comments Components Source Medication Medication Date Date Medication? Clinician (SIG) Name Name multivitami Yes 1{tbl} QD Take 1 Me thodi n with 7-[address] minerals 18:06: mouth Hospita tablet 30 daily. l ascorbic Yes 500mg QD Take 500 Meth soha acid, 7-[address] vitamin C, 18:06: mouth Hospit a (VITAMIN C) 30 daily. l 500 MG tablet Ca comb Yes Take by Methodi no.1/vit - mouth. st D3/B6/FA/B1 18:06: Hospit a 2 (VITAMIN 30 l D3, CALCIUM CIT-PHOS, ORAL) midodrine Yes 2.5mg Q.5D Take 2.5 Met hodi (PROAMATINE 7-[address] ) 2.5 MG 18:06: mouth 2 Hospit a tablet 30 (two) l times a day. escitalopra Yes 5mg QD Take 5 mg M ethodi m (LEXAPRO) -[address] 5 MG tablet 18:06: daily. Hosp ivan 30 l pantoprazol 2020- Yes 40mg QD Take 1 Met hodi e 7-28 08-28 tablet (40 st (PROTONIX) 00:00: 04:59 mg total) H ospita 40 MG EC 00 :00 by mouth l tablet daily for 30 days. metoclopram 2020- No 5mg Q.25D Take 1 Me thodi royce 6-25 07-27 tablet (5 st (Reglan) 5 00:00: 00:00 mg total) H ospita MG tablet 00 :00 by mouth 4 l (four) times a day. dronabinoL 2020- No 2.5mg Q.5D Take 1 Met hodi (MARINOL) 6-17 07-[address] 2.5 MG 00:00: 04:59 (2.5 mg Hospita capsule 00 :00 total) by l mouth 2 (two) times a day before meals for 30 days. metoclopram 2020- No 10mg Q.5D Take 10 mg Methodi royce 5-25 05-[address] (REGLAN) 10 17:35: 00:00 (two) Hosp ivan MG tablet 41 :00 times a l day. promethazin 2020- No 12.5mg Q6H Take 1 M ethodi e 5-25 06-[address] (PHENERGAN) 00:00: 00:00 (12.5 mg H ospita 12.5 MG 00 :00 total) by l tablet mouth every 6 (six) hours as needed for nausea or vomiting. pyridostigm No 60mg QD Take 1 Met hodi ine 5-17 -27 tablet (60 st (MESTINON) 00:00: 00:00 mg total) H ospita 60 mg 00 :00 by mouth l tablet daily. omeprazole 2020- No 40mg Q.5D Take 1 Meth soha (PriLOSEC) -23 -[address] 40 MG 00:00: 00:00 (40 mg Hospita capsule 00 :00 total) by l mouth 2 (two) times a day. ondansetron 2020- No [id number] 4mg Q8H Take 1 Methodi ODT (Zofran 3-26 04-26 tablet (4 st ODT) 4 MG 00:00: 04:59 mg total) Ho spita disintegrat 00 :00 by mouth l ing tablet every 8 (eight) hours as needed for nausea or vomiting for up to 30 days. pantoprazol 2020- No [id number] 40mg QD Take 1 Methodi e 3-26 04-23 tablet (40 st (PROTONIX) 00:00: 00:00 mg total) H ospita 40 MG EC 00 :00 by mouth l tablet daily. Vital Signs Vital Name Observation Time Observation Value Comments Source Systolic blood 2021-05-23 17:40:00 110 mm[Hg] Method ist Hospital pressure Diastolic blood 2021-05-23 17:40:00 75 mm[Hg] Metho dist Hospital pressure Heart rate 2021-05-23 17:40:00 78 /min [facility] Body temperature 2021-05-23 17:40:00 36.83 [facility] Respiratory rate 2021-05-23 17:40:00 18 /min [facility] Oxygen saturation in 2021-05-23 17:40:00 95 /min [facility] Arterial blood by Pulse oximetry Body height 2021-05-23 16:05:[address] [facility] Body weight 2021-05-23 16:05:[address] [facility] BMI 2021-05-23 16:05:00 23.17 kg/m2 [facility] Procedures Procedure Date / Time Performing Source Performed Clinician SURGICAL PATHOLOGY REQUEST 2021-05-23 Mg Arizmendi Wy thodist 17:39:00 [facility] ESOPHAGOGASTRODUODENOSCOPY (EGD) 2021-05-23 Mg Arizmendi 16:30:00 [facility] MRI ABDOMEN W WO CONTRAST 2021-05-18 Brody Sheffield ist 21:10:00 [facility] US ABDOMEN COMPLETE 2021-05-07 Brody Sheffield 15:55:25 [facility] FECAL FAT, QUALITATIVE 2021-04-13 Brody Sheffield 20:23:00 [facility] PANCREATIC ELASTASE, FECAL 2021-04-13 Brody Sheffieldo dist 20:23:00 [facility] FECAL CALPROTECTIN 2021-04-13 Brody Sheffield 20:23:00 [facility] ESOPHAGEAL MANOMETRY WITH MARSHALL 2021-03-06 Jameson Lee 11:56:00 [facility] NM GASTRIC EMPTYING 2021-02-23 Brody Sheffield 18:58:02 [facility] SURGICAL PATHOLOGY REQUEST 2021-02-07 Mg Arizmendi Me thodist 20:12:00 [facility] ESOPHAGOGASTRODUODENOSCOPY (EGD) 2021-02-07 Mg Arizmendiist 18:06:00 Hospital Plan of Care Planned Activity Planned Date Details Comments Source Future Scheduled Test COVID-19 VACCINE (1) [facility] [code = COVID-19 VACCINE (1)] Future Scheduled Test Hepatitis C screening [facility] (procedure) [code = 553376573] Future Scheduled Test Screening for [facility] malignant neoplasm of cervix (procedure) [code = 860535124] Future Scheduled Test INFLUENZA VACCINE [facility] [code = INFLUENZA VACCINE] Encounters Start End Encounter Admission Attending Care Care Encounter Source Date/Time Date/Time Type Type Clinicians Facility Department ID 2021-05-23 2021-05-23 [facility] Bert 1.2.840.1 [id number] Methodi 10:17:00 13:06:00 Encounter Mg Parrish 62813.1.[address] 3.430.2.7 Hospit a .3.322968 l .8 2021-05-23 2021-05-23 Surgery Bert 1.2.840.1 [id number] Methodi 12:00:00 13:00:00 Mg Parrish 37137.1.[address] 3.430.2.7 Hospit a .3.420627 l .8 2021-05-23 2021-05-23 Anesthesia Omaira Luna 1.2.840 .1 [id number] Methodi 11:28:00 11:51:00 Event Natalie Sanchez 72747.1.[address] 3.430.2.7 Hospit a .3.133171 l .8 2021-05-23 2021-05-23 Outpatient BERT [facility] 021 [id number] [place] 00:00:00 00:00:[address] MG [address] 2021-05-23 2021-05-23 Travel 1.2.840.1 1.2.966.897 7216 [id number] Methodi 00:00:00 00:00:[address] 3.430.2.7 0.2.7.3.698 Ho spita .3.948653 084.8 l .8 2021-05-18 2021-05-18 Outpatient [facility] [id number] [address] [place] 00:00:00 00:00:[address] 2021-05-17 2021-05-17 Travel 1.2.840.1 1.2.486.961 0711 [id number] Methodi 00:00:00 00:00:[address] 3.430.2.7 0.2.7.3.698 Ho spita .3.662918 084.8 l .8 2021-05-11 2021-05-11 Office Bert 1.2.840.1 [id number] Methodi 08:01:35 11:23:10 Visit Mg Parrish 79212.1.[address] 3.430.2.7 Hospit a .3.545038 l .8 2021-05-11 2021-05-11 Outpatient [facility] [id number] [address] [place] 00:00:00 00:00:[address] 2021-05-11 2021-05-11 Cira Arizmendi 1.2.840.1 [id number] Methodi 00:00:00 00:00:00 Mg Mam[address]Malik 58401.1.[address] 3.430.2.7 Hospit a .3.441864 l .8 2021-05-11 2021-05-11 Travel 1.2.840.1 1.2.734.561 0656 [id number] Methodi 00:00:00 00:00:[address] 3.430.2.7 0.2.7.3.698 Ho spita .3.136689 084.8 l .8 2021-05-07 2021-05-07 Outpatient [facility] [id number] [address] [place] 00:00:00 00:00:[address] 2021-05-07 2021-05-07 Fany Sheffield 1.2.840.1 [id number] 6575 Methodi 00:00:00 00:00:00 Only Brody 03161.1.[address] [place] 3.430.2.7 Hospit a .3.469357 l .8 2021-05-07 2021-05-07 Travel 1.2.840.1 1.2.150.396 8011 [id number] Methodi 00:00:00 00:00:[address] 3.430.2.7 0.2.7.3.698 Ho spita .3.147802 084.8 l .8 2021-05-03 2021-05-03 Fany Sheffield, 1.2.840.1 [id number] 0867 Methodi 00:00:00 00:00:00 Only Brody 96091.1.[address] [place] 3.430.2.7 Hospit a .3.127296 l .8 2021-04-20 2021-04-20 Orders Yohannes, 1.2.840.1 [id number] 3469 Methodi 00:00:00 00:00:00 Only Brody 93880.1.[address] [place] 3.430.2.7 Hospit a .3.528066 l .8 2021-04-17 2021-04-17 Travel 1.2.840.1 1.2.024.199 7213 [id number] Methodi 00:00:00 00:00:[address] 3.430.2.7 0.2.7.3.698 Ho spita .3.675163 084.8 l .8 2021-04-12 2021-04-12 Telemedici Yohannes, 1.2.840.1 [id number] Methodi 09:21:27 10:04:15 ne Brody 31666.1.[address] [place] 3.430.2.7 Hospit a .3.885096 l .8 2021-04-12 2021-04-12 Outpatient [facility] [id number] [address] [place] 00:00:00 00:00:[address] 2021-04-12 2021-04-12 Orders Manio, 1.2.840.1 [id number] 1793 Methodi 00:00:00 00:00:00 Only Howard [address]146.1.[address] 3.430.2.7 Hospit a .3.587794 l .8 2021-04-10 2021-04-10 Travel 1.2.840.1 1.2.026.055 4183 [id number] Methodi 00:00:00 00:00:[address] 3.430.2.7 0.2.7.3.698 Ho spita .3.834142 084.8 l .8 2021-04-06 2021-04-06 Travel 1.2.840.1 1.2.850.851 7270 696544 Methodi 00:00:00 00:00:[address] 3.430.2.7 0.2.7.3.698 Ho spita .3.615610 084.8 l .8 2021-03-20 2021-03-20 Orders Yohannes, 1.2.840.1 [id number] 0621 Methodi 00:00:00 00:00:00 Only Brody 56273.1.[address] [place] 3.430.2.7 Hospit a .3.623728 l .8 2021-03-12 2021-03-12 Orders Yohannes, 1.2.840.1 [id number] 8415 Methodi 00:00:00 00:00:00 Only Brody 04623.1.[address] [place] 3.430.2.7 Hospit a .3.777577 l .8 2021-03-06 2021-03-06 Surgery Ergun, 1.2.840.1 [id number] 0202 Methodi 07:00:00 09:00:00 Gulchin A. 69127.1.1 [address] 3.430.2.7 Hospit a .3.094008 l .8 2021-03-06 2021-03-06 Hospital Ergun, 1.2.840.1 [id number] 09917 Methodi 06:33:00 08:42:00 Encounter Manueldonato Iman. 97573.1.[address] 3.430.2.7 Hospit a .3.144463 l .8 2021-03-06 2021-03-06 Travel 1.2.840.1 1.2.727.094 2349 [id number] Methodi 00:00:00 00:00:[address] 3.430.2.7 0.2.7.3.698 Ho spita .3.670388 084.8 l .8 2021-03-06 2021-03-06 Outpatient [facility], [facility] [id number] [place] [address] 00:00:00 00:00:00 MANUELDONATO [address] 2021-02-27 2021-02-27 Travel 1.2.840.1 1.2.709.150 6964 [id number] Methodi 00:00:00 00:00:[address] 3.430.2.7 0.2.7.3.698 Ho spita .3.364679 084.8 l .8 2021-02-26 2021-02-26 Telephone Yohannes, 1.2.840.1 [id number] 2099 [id number] Methodi 00:00:00 00:00:[address] [place] 3.430.2.7 Hospit a .3.667325 l .8 2021-02-23 2021-02-23 Hospital Asked, No Pcp 1.2.840.1 [id number] Methodi 09:12:10 23:59:00 Mg Templeton [address]282.1.[address] 3.430.2.7 Hospit a .3.815157 l .8 2021-02-23 2021-02-23 Travel 1.2.840.1 1.2.146.559 8786 516938 Methodi 00:00:00 00:00:[address] 3.430.2.7 0.2.7.3.698 Ho spita .3.808344 084.8 l .8 2021-02-23 2021-02-23 Outpatient BERT, [facility] [id number] [place] 00:00:00 00:00:00 MG Vogt6 [facility] 2021-02-20 2021-02-20 Telephone Bert, 1.2.840.1 [id number] [id number] Methodi 00:00:00 00:00:00 Mg Parrish 07632.1.[address] 3.430.2.7 Hospit a .3.020277 l .8 2021-02-19 2021-02-19 Travel 1.2.840.1 1.2.655.127 1231 [id number] Methodi 00:00:00 00:00:[address] 3.430.2.7 0.2.7.3.698 Ho spita .3.257917 084.8 l .8 2021-02-16 2021-02-16 Telemedici Yohannes, 1.2.840.1 [id number] 880 [id number] Methodi 09:48:26 10:29:05 ne Brody 24600.1.[address] [place] 3.430.2.7 Hospit a .3.021884 l .8 2021-02-16 2021-02-16 Outpatient [facility] [id number] 8[address] [place] 00:00:00 00:00:[address] 2021-02-16 2021-02-16 Refill Edy, 1.2.840.1 [id number] 4080 Methodi 00:00:00 00:00:[address] 3.430.2.7 Hospit a .3.977087 l .8 2021-02-13 2021-02-13 Travel 1.2.840.1 1.2.866.372 4171 124593 Methodi 00:00:00 00:00:[address] 3.430.2.7 0.2.7.3.698 Ho spita .3.645246 084.8 l .8 2021-02-07 2021-02-07 [facility], 1.2.840.1 [id number] 2099 [id number] Methodi 11:51:00 14:22:00 Encounter Mg Parrish 22746.1.[address] 3.430.2.7 Hospit a .3.117389 l .8 2021-02-07 2021-02-07 [facility] 1.2.840.1 [id number] 87424 27356 Methodi 13:00:00 14:00:00 Mg Parrish 15328.1.[address] 3.430.2.7 Hospit a .3.149890 l .8 2021-02-07 2021-02-07 Anesthesia DayanaraTerrence mccray 1.2.840.1 [id number] Methodi 13:06:00 13:36:00 Event Natalie Sanchez 59783.1.[address] 3.430.2.7 Hospit a .3.240432 l .8 2021-02-07 2021-02-07 Travel 1.2.840.1 1.2.049.527 0032 465515 Methodi 00:00:00 00:00:[address] 3.430.2.7 0.2.7.3.698 Ho spita .3.726798 084.8 l .8 2021-02-07 2021-02-07 Outpatient [facility] 021 [id number] 30[address] [place] 00:00:00 00:00:[address] MG [address] 2021-02-01 2021-02-01 Travel 1.2.840.1 1.2.782.476 8569 996537 Methodi 00:00:00 00:00:[address] 3.430.2.7 0.2.7.3.698 Ho spita .3.358685 084.8 l .8 2021-01-29 2021-01-29 Travel 1.2.840.1 1.2.768.362 5493 045947 Methodi 00:00:00 00:00:[address] 3.430.2.7 0.2.7.3.698 Ho spita .3.377931 084.8 l .8 2021-01-22 2021-01-22 Telephone Bert, 1.2.840.1 [id number] 705 [id number] Methodi 00:00:00 00:00:00 Mg Francois 19845.1.[address] 3.430.2.7 Hospit a .3.814085 l .8 2021-01-19 2021-01-19 Orders Edy, 1.2.840.1 [id number] 5021 Methodi 00:00:00 00:00:00 Only Howard 99637.1.[address] 3.430.2.7 Hospit a .3.049644 l .8 2021-01-18 2021-01-18 Telemedici Bert, 1.2.840.1 [id number] Methodi 10:45:49 11:12:41 ne Mg MamieMalik 03163.1.[address] 3.430.2.7 Hospit a .3.394379 l .8 2021-01-18 2021-01-18 Outpatient BERT [facility] [id number] [address] [place] 00:00:00 00:00:[address] MG [address] 2020-12-18 2020-12-18 Travel 1.2.840.1 1.2.736.722 0592 [id number] Methodi 00:00:00 00:00:[address] 3.430.2.7 0.2.7.3.698 Ho spita .3.658026 084.8 l .8 Results Test Description Test Time Test Comments Results Result Comments Source Surgical pathology request 2021-05-25 16:54:57 Test Item Value Reference Range Interpretation Comme nts Case number (test code = [id number]) [id number] Surgical pathology report (test code = See link below for PDF Lab R eport 8306) Result status (test code = 8061402) This is Final Report for [id number] [id number] [facility] [id number] 01:36:00 Test Item Value Reference Range Interpretation Comments Fat qual, stool (test code = SEE NOTE 40996-3) RAC (test code = RAC) [facility] [id number] 01:36:00 Test Item Value Reference Range Interpretation Comments Fecal calprotectin (test code = mcg/g 30951-8) RAC (test code = RAC) [facility] [id number] 07:11:00 Test Item Value Reference Range Interpretation Comments Pancreatic Elastase-1 (test code = >500 mcg/g 73841-2) RAC (test code = RAC) [facility] [id number] 19:25:40PROCEDURE: NM GASTRIC EMPTYING INDICATION: Nausea. Gastroesophageal reflux disease. TECHNIQUE: 0.5 mCi of Tc-99m sulfur colloid was mixed with an egg and cooked. The egg was fed to the patient and dynamic planar images of the abdomen were acquired for 90 minutes. Delayed images were obtained at4 hours. FINDINGS: The initial gastric emptying rate is delayed. The half-time of emptying is 351minutes. Normal range is between 45 and 100 minutes. 4 hour residual is 15%. IMPRESSION: 1. Delayed gastric emptying rate. [facility]-[id number] Interface, Radiology Results - 02/23/2021 2:28 PM CDT PROCEDURE: NM GASTRIC [...] emptying is 351 minutes. Normal range is iyixqhe25 and 100 minutes. 4 hour residual is 15%. IMPRESSION: 1. Delayed gastric emptying rate. [id number]
[2021-06-01 08:02] LABS: Absolute Lymphocytes (CBC) 1.8 K/uL (0.7-4.9); Basophils % 0.1 % (0-1.3); Hematocrit 45.9 % (36.0-45.0); Lymphocytes % 20.3 % (15.3-44.8); RBC Red Blood Cell Count 5.05 M/uL (3.86-4.86)
[2021-06-01 08:31] LABS: Protime INR 1.14
[2021-06-01 09:04] LABS: ALT/SGPT 56 U/L (12-78); AST/SGOT 24 U/L (15-37); Albumin 4.4 g/dL (3.4-5.0); Alkaline Phosphatase 60 U/L (45-117); BUN Blood Urea Nitrogen 6 mg/dL (7-18); Bicarbonate 28 mmol/L (21-32); Bilirubin Direct 0.2 mg/dL (0-0.2); Bilirubin Total 0.8 mg/dL (0.2-1.0); Glucose Level 101 mg/dL (74-106); Magnesium 2.3 mg/dL (1.8-2.4); NT PRO-BNP 12 pg/mL (<125); Potassium 3.8 mmol/L (3.5-5.1); Protein, Total 8.5 g/dL (6.4-8.2); Sodium Level 139 mmol/L (136-145); Troponin (Emerg Dept Use Only) < 0.02 ng/mL (0.0-0.045)
--- NOTE | 2021-06-01 09:21 | ER ---
Nurse's Notes [facility] Name: Helen Mccullough Age: 40 yrs Sex: Female : 1980 Arrival Date: 06/01/2021 Time: 06:21 Bed Waiting Private MD: Diagnosis: Chest pain, unspecified Presentation: 06/01 06:37 Chief complaint: Patient states: she started having palpitations yesterday and couldn't bb sleep all night she was having some chest pain but not now. Coronavirus screen: At this time, the client does not indicate any symptoms associated with coronavirus-19. Ebola Screen: No symptoms or risks identified at this time. Initial Sepsis Screen: Does the patient meet any 2 criteria? No. Patient's initial sepsis screen is negative. Does the patient have a suspected source of infection? No. Patient's initial sepsis screen is negative. Risk Assessment: Do you want to hurt yourself or someone else? Patient reports no desire to harm self or others. Onset of symptoms was May 31, 2021. 06:37 Method Of Arrival: Ambulatory bb 06:37 Acuity: AGUSTIN 3 bb Triage Assessment: 06:41 General: Appears in no apparent distress. Behavior is calm, cooperative. Pain: Denies bb pain. Neuro: Level of Consciousness is awake, alert, obeys commands, Oriented to person, place, time, situation. Cardiovascular: Capillary refill < 3 seconds Patient's skin is warm and dry. Respiratory: Respiratory effort is even, unlabored, Respiratory pattern is regular. GI: No signs and/or symptoms were reported involving the gastrointestinal system. Derm: Skin is pink, warm \T\ dry. Musculoskeletal: Circulation, motion, and sensation intact. WIRE SETTER: 06:41 LMP N/A - Hysterectomy bb Historical: - Allergies: 06:41 No Known Allergies; bb - Home Meds: 06:41 midodrine oral [Active]; dronabinol oral [Active]; pantoprazole oral [Active]; bb escitalopram oxalate oral [Active]; - PMHx: 06:41 low BP; GERD; Anxiety; bb - PSHx: 06:41 Cholecystectomy; hysterectomy; bb - Immunization history:: Adult Immunizations up to date, Client reports having NOT received the Covid vaccine. - Social history:: Smoking status: Patient denies any tobacco usage or history of. Patient/guardian denies using alcohol, street drugs. Assessment: 07:42 Reassessment: Labs drawn by information technology associate and pt placed back in the lobby, notified of wait aa5 time. . Vital Signs: 06:37 BP 106 / 81; Pulse 90; Resp 16 S; Temp 98.3(O); Pulse Ox 98% on R/A; Weight 60.78 kg bb (R); Height 5 ft. 4 in. (162.56 cm) (R); Pain 0/10; 06:37 Body Mass Index 23.00 (60.78 kg, 162.56 cm) ED Course: 06:21 Patient arrived in ED. wm 06:41 Triage completed. bb 06:41 Arm band placed on. bb 06:51 EKG completed in triage. Results shown to MD. bb 07:08 Joshua Jordan PA is PHCP. jr8 07:08 Favian Kc MD is Attending Physician. jr8 07:40 Inserted saline lock: 20 gauge in left antecubital area, using aseptic technique. Blood mt collected. 07:42 Patient placed in waiting room, Patient notified of wait time. aa5 09:43 Attending Physician role handed off by Favian Kc MD aa5 Administered Medications: No medications were administered Outcome: 09:20 Discharge ordered by . jr8 09:28 Discharged to home by JENNIFER from [facility]. aa5 09:28 Condition: stable aa5 09:28 Instructed on discharge instructions, follow up and referral plans. Demonstrated understanding of instructions, follow-up care. 09:30 Patient left the ED. aa5 Signatures: Steph Almeida RN RN Neda White, BURKE RN Joshua Guo PA PA jrKely Lilly mt, Wendy Corrections: (The following items were deleted from the chart) 06:43 06:41 PMHx: Gastroparesis; [facility] [place] :43 09:43 Neda White, RN is Primary Nurse. aa5 aa5 09:43 09:29 Patient left the ED. aa5 aa5 09:44 09:43 Patient left the ED. aa5 aa5 19:23 07:42 Neda White, BURKE is Primary Nurse. aa5 aa5 19:24 09:28 Discharged to home by PA. aa5 aa5 :34 09:28 Discharged to home by PA. aa5 aa5
--- NOTE | 2021-06-01 09:21 | EDPHYS ---
Physician Documentation [facility] Name: Helen Mccullough Age: 40 yrs Sex: Female : 1980 Arrival Date: 06/01/2021 Time: 06:21 Bed Waiting Private MD: ED Physician HPI: 06/01 08:35 This 40 yrs old Female presents to ER via Ambulatory with complaints of High jr8 Blood Pressure, Chest Pain > 30 y/o. 08:35 Onset: The symptoms/episode began/occurred acutely, today. Associated signs and jr8 symptoms: Pertinent positives: chest pain. The patient has not experienced similar symptoms in the past. The patient has not recently seen a physician. This is a 40-year-old female that presented to the emergency room with sudden onset sharp chest pain that lasted only a few seconds and has been relieved since then. Stated that yesterday she had had on and off palpitations. Denies any other further symptoms at this time.. 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 - Social history:: Smoking status: Patient denies any tobacco usage or history of. Patient/guardian denies using alcohol, street drugs. ROS: 08:35 Eyes: Negative for injury, pain, redness, and discharge, ENT: Negative for injury, jr8 pain, and discharge, Neck: Negative for injury, pain, and swelling, Respiratory: Negative for shortness of breath, cough, wheezing, and pleuritic chest pain, Abdomen/GI: Negative for abdominal pain, nausea, vomiting, diarrhea, and constipation, Back: Negative for injury and pain, MS/Extremity: Negative for injury and deformity, Skin: Negative for injury, rash, and discoloration, Neuro: Negative for headache, weakness, numbness, tingling, and seizure. 08:35 Cardiovascular: Positive for chest pain, palpitations. Exam: 08:35 Constitutional: This is a well developed, well nourished patient who is awake, alert, jr8 and in no acute distress. Neck: Trachea midline, no thyromegaly or masses palpated, and no cervical lymphadenopathy. Supple, full range of motion without nuchal rigidity, or vertebral point tenderness. No Meningismus. Chest/axilla: Normal chest wall appearance and motion. Nontender with no deformity. No lesions are appreciated. Cardiovascular: Regular rate and rhythm with a normal S1 and S2. No gallops, murmurs, or rubs. Normal PMI, no JVD. No pulse deficits. Respiratory: Lungs have equal breath sounds bilaterally, clear to auscultation and percussion. No rales, rhonchi or wheezes noted. No increased work of breathing, no retractions or nasal flaring. Abdomen/GI: Soft, non-tender, with normal bowel sounds. No distension or tympany. No guarding or rebound. No evidence of tenderness throughout. Back: No spinal tenderness. No costovertebral tenderness. Full range of motion. Skin: Warm, dry with normal turgor. Normal color with no rashes, no lesions, and no evidence of cellulitis. MS/ Extremity: Pulses equal, no cyanosis. Neurovascular intact. Full, normal range of motion. Neuro: Awake and alert, GCS 15, oriented to person, place, time, and situation. Cranial nerves II-XII grossly intact. Motor strength 5/5 in all extremities. Sensory grossly intact. Cerebellar exam normal. Normal gait. Vital Signs: 06:37 BP 106 / 81; Pulse 90; Resp 16 S; Temp 98.3(O); Pulse Ox 98% on R/A; Weight 60.78 kg bb (R); Height 5 ft. 4 in. (162.56 cm) (R); Pain 0/10; 06:37 Body Mass Index 23.00 (60.78 kg, 162.56 cm) bb MDM: 07:09 Patient medically screened. jr8 09:19 Data reviewed: vital signs, nurses notes, lab test result(s), EKG, radiologic studies, jr8 plain films. Data interpreted: Pulse oximetry: on room air is 98 %. Interpretation: normal. Counseling: I had a detailed discussion with the patient and/or guardian regarding: the historical points, exam findings, and any diagnostic results supporting the discharge/admit diagnosis, lab results, radiology results, the need for outpatient follow up, a family practitioner, to return to the emergency department if symptoms worsen or persist or if there are any questions or concerns that arise at home. ED course: Iker with patient that some of the palpitations and dry mouth can be a side of her dronabinol that she just started as it is a cannabinoid derivative. Would not cause the sharp chest pain but cardiac enzymes, EKG, chest x-ray unremarkable. Recommended follow-up with PCP in the next few days and if she were to feel worse to report back to the emergency room. Patient good with this plan at this time and will follow up.. 06/01 07:08 Order name: Basic Metabolic Panel; Complete Time: 09:13 8 06/01 07:08 Order name: CBC with Diff; Complete Time: 08:21 8 06/01 07:08 Order name: LFT's; Complete Time: 09:13 8 06/01 07:08 Order name: Magnesium; Complete Time: 09:13 8 06/01 07:08 Order name: NT PRO-BNP; Complete Time: 09:13 8 06/01 07:08 Order name: PT-INR; Complete Time: 08:33 jr8 06/01 07:08 Order name: Troponin (emerg Dept Use Only); Complete Time: 09:13 8 06/01 07:08 Order name: EKG; Complete Time: 07:09 8 06/01 07:08 Order name: EKG - Nurse/Tech; Complete Time: 07:30 8 06/01 07:08 Order name: IV Saline Lock; Complete Time: 07:40 jr8 06/01 07:08 Order name: Labs collected and sent; Complete Time: 07:40 jr8 Administered Medications: No medications were administered Disposition Summary: 06/01/21 09:20 [facility]charge [facility] Problem: new jr8 Symptoms: have improved jr8 Condition: Stable jr8 Diagnosis - Chest pain, unspecified jr8 Followup: jr8 - With: Private Physician - When: 2 - 3 days - Reason: Recheck today's complaints, Continuance of care, Re-evaluation by your physician Discharge Instructions: - Discharge Summary Sheet jr8 - Nonspecific Chest Pain, Adult jr8 Forms: - Medication Reconciliation Form jr8 - Thank You Letter jr8 - Antibiotic Education jr8 - Prescription Opioid Use jr8 Signatures: Dispatcher [employer] Steph Florez RN RN Joshua Delgadillo PA PA jr8 Corrections: (The following items were deleted from the chart) 06:43 06:41 PMHx: Gastroparesis; blade murguia
[2021-06-01 09:49] VITALS: BP 106/81; TEMP 98.3; O2SAT 98
--- NOTE | 2021-06-03 08:05 | EKG ---
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
== END 2021-06-01 09:43 | disposition home or self-care (01) ==
LOC: ER 06:18
DX: R07.9 Chest pain, unspecified (principal); R00.2 Palpitations; F41.9 Anxiety disorder, unspecified; K21.9 Gastro-esophageal reflux disease without esophagitis
CPT/HCPCS: 36415; 80048; 80076; 83735; 83880; 84484; 85025; 85610; 93005; 99283